=== PATIENT | female | born 1990 | race American Indian/Alaskan Native ===

== ENCOUNTER 2017-01-25 10:38 | Emergency (ER) | payer MEDICAID, OTHER ==
[2017-01-25 11:19] VITALS: BP 138/93
[2017-01-25] MEDS ORDERED: FLEXERIL PO ONE (11:55)
[2017-01-25] MEDS ORDERED: MOTRIN PO ONE (11:56)
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
== END 2017-01-25 13:40 | disposition home or self-care (01) ==
LOC: ED 10:38
DX: R51 Headache (principal); E66.9 Obesity, unspecified; V49.9XXA Car occupant (driver) (passenger) injured in unspecified traffic accident, initial encounter; Y93.89 Activity, other specified; Y99.9 Unspecified external cause status; Y92.410 Unspecified street and highway as the place of occurrence of the external cause
CPT/HCPCS: 70450

== ENCOUNTER 2017-02-01 08:51 | Emergency (ER) | payer MEDICAID, OTHER ==
[2017-02-01 09:09] VITALS: BP 147/98
[2017-02-01 09:54] LABS: Hematocrit 38.1 % (30.3-42.9); Mean Corpuscular HGB Conc 32 % (30-34); Mean Corpuscular Volume 81 fl (79-97); Platelet Count 332 K/mm3 (140-440); Red Blood Count 4.73 M/mm3 (3.65-5.03); Red Cell Distribution Width 15.2 % (13.2-15.2); White Blood Count 5.9 K/mm3 (4.5-11.0)
[2017-02-01 09:56] LABS: Mean Corpuscular Hemoglobin 25 pg (28-32)
[2017-02-01 10:08] LABS: Bacteria,Urine 1+ /HPF (Negative); Bilirubin,Urine NEG (Negative); Blood,Urine LG (Negative); Ketones,Urine NEG (Negative); Leukocyte Esterase,Urine TR (Negative); Mucus,Urine 1+ /HPF; Nitrite,Urine NEG (Negative); Urobilinogen,Urine < 2.0 mg/dL (<2.0)
[2017-02-01 10:36] LABS: Basophils % (Manual) 0 % (0.0-1.8); Blastocytes % (Manual) 0 %
[2017-02-01 10:37] LABS: Anisocytosis 1+; Hypochromasia 1+; Poikilocytosis 1+; Target Cells Few
[2017-02-01 10:38] LABS: Giant Platelets Rare; Ovalocytes Few; Platelet Estimate Consistent w Auto
[2017-02-01 10:39] LABS: Diff Status Complete
--- NOTE | 2017-02-01 12:56 | Emergency Department Report ---
ED Female HPI - General Chief complaint: Urogenital-Female Stated complaint: ABD CYCLE X 10 DAYS Source: patient Mode of arrival: Ambulatory Limitations: No Limitations - History of Present Illness Initial comments: 26 year old female presents to ED with vaginal bleeding. patient states her menstrual cycle is on right now and has lasted 10 days instead of her usual 5 days and she would like to be evaluated. patient denies vaginal discharge and denies being sexually active. patient denies dysuria. patient denies abdominal/ pelvic pain, N/V. patient is stable, neurologically intact and in no acute distress. patient has neg preg test during ED visit today. MD Complaint: vaginal bleeding -: Gradual Radiation: non-radiating Severity: mild Consistency: constant Worsens with: menstrual period Are you Now?: No Associated Symptoms: vaginal bleeding. denies: vaginal discharge, abdominal pain, nausea/vomiting, fever/chills, dysuria, syncope, weakness - Related Data Sexually active: No Previous Rx's Medication Instructions Recorded Last Taken Type Cyclobenzaprine [Flexeril] 10 mg PO TID PRN #20 tablet 01/25/17 Unknown Rx Naproxen [Naprosyn] 500 mg PO BID #30 tablet 01/25/17 Unknown Rx Allergies Allergy/AdvReac Type Severity Reaction Status Date / Time No Known Allergies Allergy Verified 01/25/17 11:14 ED Review of Systems ROS: Stated complaint: ABD CYCLE X 10 DAYS Other details as noted in HPI Constitutional: denies: chills, fever Eyes: denies: eye pain, eye discharge, vision change ENT: denies: ear pain, throat pain Respiratory: denies: cough, shortness of breath, wheezing Cardiovascular: denies: chest pain, palpitations Endocrine: no symptoms reported Gastrointestinal: denies: abdominal pain, nausea, diarrhea Genitourinary: abnormal menses. denies: urgency, dysuria, discharge Musculoskeletal: denies: back pain, joint swelling, arthralgia Skin: denies: rash, lesions Neurological: denies: headache, weakness, paresthesias Psychiatric: denies: anxiety, depression Hematological/Lymphatic: denies: easy bruising ED Past Medical Hx - Past Medical History Previous Medical History?: No Hx Hypertension: No Hx Congestive Heart Failure: No Hx Diabetes: No Hx Deep Vein Thrombosis: No Hx Renal Disease: No Hx Sickle Cell Disease: No Hx Seizures: No Hx Asthma: No Hx COPD: No Hx HIV: No Additional medical history: OBESITY - Surgical History Past Surgical History?: No - Social History Smoking Status: Never Smoker Substance Use Type: None - Medications Home Medications: Home Medications Medication Instructions Recorded Confirmed Last Taken Type Cyclobenzaprine [Flexeril] 10 mg PO TID PRN #20 tablet 01/25/17 Unknown Rx Naproxen [Naprosyn] 500 mg PO BID #30 tablet 01/25/17 Unknown Rx ED Physical Exam - General Limitations: No Limitations General appearance: alert, in no apparent distress - Head Head exam: Present: atraumatic, normocephalic - Eye Eye exam: Present: normal appearance - ENT ENT exam: Present: mucous membranes moist - Neck Neck exam: Present: normal inspection - Respiratory Respiratory exam: Present: normal lung sounds bilaterally. Absent: respiratory distress, wheezes - Cardiovascular Cardiovascular Exam: Present: regular rate, normal rhythm. Absent: systolic murmur, diastolic murmur, rubs, gallop - GI/Abdominal GI/Abdominal exam: Present: soft, normal bowel sounds. Absent: distended, tenderness, guarding - External exam: Present: normal external exam Speculum exam: Present: vaginal bleeding. Absent: vaginal discharge, foreign body - Extremities Exam Extremities exam: Present: normal inspection, full ROM - Back Exam Back exam: Present: normal inspection, full ROM - Neurological Exam Neurological exam: Present: alert, oriented X3, normal gait - Psychiatric Psychiatric exam: Present: normal affect, normal mood - Skin Skin exam: Present: warm, dry, intact, normal color. Absent: rash ED Course Vital Signs 02/01/17 09:05 Temperature 98.9 F Pulse Rate 97 H Respiratory 16 Rate Blood Pressure 147/98 O2 Sat by Pulse 100 Oximetry ED Medical Decision Making - Lab Data Result diagrams: 02/01/17 09:16 Labs 02/01/17 02/01/17 02/01/17 09:16 09:16 09:16 WBC 5.9 RBC 4.73 Hgb 12.0 Hct 38.1 MCV 81 MCH 25 L MCHC 32 RDW 15.2 Plt Count 332 Add Manual Diff Complete Total Counted 100 Seg Neutrophils % Poultry Offal Icer Seg Neuts % (Manual) 28.0 L Band Neutrophils % 0 Lymphocytes % (Manual) 65.0 H Reactive Lymphs % (Man) 0 Monocytes % (Manual) 5.0 Eosinophils % (Manual) 2.0 Basophils % (Manual) 0 Metamyelocytes % 0 Myelocytes % 0 Promyelocytes % 0 Blast Cells % 0 Nucleated RBC % Not Reportable Seg Neutrophils # Man 1.7 L Band Neutrophils # 0.0 Lymphocytes # (Manual) 3.8 Abs React Lymphs (Man) 0.0 Monocytes # (Manual) 0.3 Eosinophils # (Manual) 0.1 Basophils # (Manual) 0.0 Metamyelocytes # 0.0 Myelocytes # 0.0 Promyelocytes # 0.0 Blast Cells # 0.0 WBC Morphology Not Reportable Hypersegmented Neuts Not Reportable Hyposegmented Neuts Not Reportable Hypogranular Neuts Not Reportable Smudge Cells Not Reportable Toxic Granulation Not Reportable Toxic Vacuolation Not Reportable Dohle Bodies Not Reportable Pelger-Huet Anomaly Not Reportable Deana Rods Not Reportable Platelet Estimate Consistent w auto Clumped Platelets Not Reportable Plt Clumps, EDTA Not Reportable Large Platelets Not Reportable Giant Platelets Rare Platelet Satelliting Not Reportable Plt Morphology Comment Not Reportable RBC Morphology Not Reportable Dimorphic RBCs Not Reportable Polychromasia Not Reportable Hypochromasia 1+ Poikilocytosis 1+ Anisocytosis 1+ Microcytosis Not Reportable Macrocytosis Not Reportable Spherocytes Not Reportable Pappenheimer Bodies Not Reportable Sickle Cells Not Reportable Target Cells Few Tear Drop Cells Not Reportable Ovalocytes Few Helmet Cells Not Reportable Jarrell-[place] Bodies Not Reportable Bethelridge Rings Not Reportable Terrie Cells Not Reportable Bite Cells Not Reportable Crenated Cell Not Reportable Elliptocytes Not Reportable Acanthocytes (Spur) Not Reportable Rouleaux Not Reportable Hemoglobin C Crystals Not Reportable Schistocytes Not Reportable Malaria parasites Not Reportable Peyman Bodies Not Reportable Hem Pathologist Commnt No HCG, Quant < 2 Urine Color Urine Turbidity Urine pH Ur Specific Henriette Urine Protein Urine Glucose (UA) Urine Ketones Urine Blood Urine Nitrite Urine Bilirubin Urine Urobilinogen Ur Leukocyte Esterase Urine WBC (Auto) Urine RBC (Auto) U Epithel Cells (Auto) Urine Bacteria (Auto) Urine Mucus Blood Type B POSITIVE Antibody Screen Negative 02/01/17 09:24 WBC RBC Hgb Hct MCV MCH MCHC RDW Plt Count Add Manual Diff Total Counted Seg Neutrophils % Seg Neuts % (Manual) Band Neutrophils % Lymphocytes % (Manual) Reactive Lymphs % (Man) Monocytes % (Manual) Eosinophils % (Manual) Basophils % (Manual) Metamyelocytes % Myelocytes % Promyelocytes % Blast Cells % Nucleated RBC % Seg Neutrophils # Man Band Neutrophils # Lymphocytes # (Manual) Abs React Lymphs (Man) Monocytes # (Manual) Eosinophils # (Manual) Basophils # (Manual) Metamyelocytes # Myelocytes # Promyelocytes # Blast Cells # WBC Morphology Hypersegmented Neuts Hyposegmented Neuts Hypogranular Neuts Smudge Cells Toxic Granulation Toxic Vacuolation Dohle Bodies Pelger-Huet Anomaly Deana Rods Platelet Estimate Clumped Platelets Plt Clumps, EDTA Large Platelets Giant Platelets Platelet Satelliting Plt Morphology Comment RBC Morphology Dimorphic RBCs Polychromasia Hypochromasia Poikilocytosis Anisocytosis Microcytosis Macrocytosis Spherocytes Pappenheimer Bodies Sickle Cells Target Cells Tear Drop Cells Ovalocytes Helmet Cells Jarrell-[place] Bodies Bethelridge Rings Waterman Cells Bite Cells Crenated Cell Elliptocytes Acanthocytes (Spur) Rouleaux Hemoglobin C Crystals Schistocytes Malaria parasites Peyman Bodies Hem Pathologist Commnt HCG, Quant Urine Color Yellow Urine Turbidity Cloudy Urine pH 5.0 Ur Specific Henriette 1.027 Urine Protein 30 mg/dl Urine Glucose (UA) Neg Urine Ketones Neg Urine Blood Lg Urine Nitrite Neg Urine Bilirubin Neg Urine Urobilinogen < 2.0 Ur Leukocyte Esterase Tr Urine WBC (Auto) 2.0 Urine RBC (Auto) 5.0 U Epithel Cells (Auto) 26.0 H Urine Bacteria (Auto) 1+ Urine Mucus 1+ Blood Type Antibody Screen patient has normal wet prep exam - Medical Decision Making 26 year old female presents to ED with vaginal bleeding. patient states she is currently on menstrual cycle but cycle has lasted 10 days instead of her usual 5 days. patient has normal H&H, no UTI present in urine, normal wet prep results and neg preg test. patient has [employer] and understands and agrees to follow up within 2-3 days. patient is stable, neurologically intact and in no acute distress. Critical care attestation.: If time is entered above; I have spent that time in minutes in the direct care of this critically ill patient, excluding procedure time. ED Disposition Clinical Impression: Abnormal menstrual cycle Disposition: DC- TO HOME OR SELFCARE Is pt being admited?: No Does the pt Need Aspirin: No Condition: Stable Referrals: [facility] [Other] - 2-3 Days
== END 2017-02-01 13:05 | disposition home or self-care (01) ==
LOC: ED 08:51
DX: N92.6 Irregular menstruation, unspecified (principal); E66.9 Obesity, unspecified
CPT/HCPCS: 36415; 81001; 84702; 85007; 85025; 86850; 86900; 86901; 87210; 87591; 99284

== ENCOUNTER 2017-06-05 10:28 | Outpatient (CLI) | payer MEDICAID ==
--- NOTE | 2017-06-05 13:59 | Ultrasound Report ---
ULTRASOUND THYROID SCAN History: Nontoxic goiter unspecified. Findings: Grayscale ultrasound with color Doppler interrogation was performed. The thyroid gland is normal size, contour and echotexture. No evidence for mass, cyst or adenopathy. Impression: Normal sonographic appearance of the thyroid gland. No focal lesion.
== END 2017-06-05 10:29 | disposition home or self-care (01) ==
LOC: US 10:28
PROVIDERS: ATTEND Family Medicine
DX: E04.9 Nontoxic goiter, unspecified (principal)
CPT/HCPCS: 76536

== ENCOUNTER 2017-06-23 23:51 | Emergency (ER) | payer MEDICAID | END 2017-06-23 23:52 | disposition left against medical advice (07) | LOC: ED 23:51 | DX: R10.9 Unspecified abdominal pain (principal); Z53.21 Procedure and treatment not carried out due to patient leaving prior to being seen by health care provider ==

== ENCOUNTER 2017-09-16 19:16 | Emergency (ER) | payer MEDICAID ==
[2017-09-16 20:41] LABS: HCG Qualitative,Urine Negative (Negative)
[2017-09-16] MEDS ORDERED: MOTRIN ONE (23:28)
[2017-09-17] MEDS ORDERED: FLEXERIL PO ONE (00:24)
[2017-09-17] MEDS ORDERED: MOTRIN PO ONE (00:24)
--- NOTE | 2017-09-17 01:41 | Emergency Department Report ---
ED General Adult HPI - General Chief complaint: Extremity Injury, Upper Stated complaint: SOB,BACK PAIN Time Seen by Provider: 09/17/17 00:22 Source: patient Mode of arrival: Ambulatory Limitations: No Limitations - History of Present Illness Initial comments: 27-year-old female past medical history obesity, on control presents with complaint of left back muscle pain. States it has been ongoing for 2 days. States that she has been straining herself by lifting heavy boxes at work. Patient also states that she experiences pain in this area of her upper left back below shoulder when she takes a deep breath. Denies any anterior chest pain palpitations diaphoresis nausea vomiting or abdominal pain. Denies any hemoptysis. Patient denies any direct trauma to area. Patient denies any personal history of PE or DVT. Denies any shortness of breath palpitations. Patient does state she is currently on Depo-Provera for control Onset/Timin -: days(s) Location: back (left upper back) Severity scale (0 -10): 6 Quality: aching Consistency: intermittent Worsens with: movement - Related Data Previous Rx's Medication Instructions Recorded Last Taken Type Cyclobenzaprine [Flexeril] 10 mg PO TID PRN #20 tablet 01/25/17 Unknown Rx Naproxen [Naprosyn] 500 mg PO BID #30 tablet 01/25/17 Unknown Rx Cyclobenzaprine [Flexeril] 10 mg PO TID PRN #12 tablet 09/17/17 Unknown Rx Ibuprofen [Motrin] 800 mg PO Q8HR PRN #20 tablet 09/17/17 Unknown Rx Allergies Allergy/AdvReac Type Severity Reaction Status Date / Time No Known Allergies Allergy Verified 01/25/17 11:14 ED Review of Systems ROS: Stated complaint: SOB,BACK PAIN Other details as noted in HPI Constitutional: denies: chills, fever Eyes: denies: eye pain, eye discharge, vision change ENT: denies: ear pain, throat pain Respiratory: denies: cough, shortness of breath, wheezing Cardiovascular: denies: chest pain, palpitations Endocrine: no symptoms reported Gastrointestinal: denies: abdominal pain, nausea, diarrhea Genitourinary: denies: urgency, dysuria, discharge Musculoskeletal: as per HPI. denies: back pain, joint swelling, arthralgia Skin: denies: rash, lesions Neurological: denies: headache, weakness, paresthesias Psychiatric: denies: anxiety, depression Hematological/Lymphatic: denies: easy bleeding, easy bruising ED Past Medical Hx - Past Medical History Hx Hypertension: No Hx Congestive Heart Failure: No Hx Diabetes: No Hx Deep Vein Thrombosis: No Hx Renal Disease: No Hx Sickle Cell Disease: No Hx Seizures: No Hx Asthma: No Hx COPD: No Hx HIV: No Additional medical history: OBESITY - Social History Smoking Status: Never Smoker Substance Use Type: None - Medications Home Medications: Home Medications Medication Instructions Recorded Confirmed Last Taken Type Cyclobenzaprine [Flexeril] 10 mg PO TID PRN #20 tablet 01/25/17 Unknown Rx Naproxen [Naprosyn] 500 mg PO BID #30 tablet 01/25/17 Unknown Rx Cyclobenzaprine [Flexeril] 10 mg PO TID PRN #12 tablet 09/17/17 Unknown Rx Ibuprofen [Motrin] 800 mg PO Q8HR PRN #20 tablet 09/17/17 Unknown Rx ED Physical Exam - General Limitations: No Limitations General appearance: alert, in no apparent distress - Head Head exam: Present: atraumatic, normocephalic - Eye Eye exam: Present: normal appearance, PERRL, EOMI - ENT ENT exam: Present: mucous membranes moist - Neck Neck exam: Present: normal inspection - Respiratory Respiratory exam: Present: normal lung sounds bilaterally. Absent: respiratory distress - Cardiovascular Cardiovascular Exam: Present: regular rate, normal rhythm. Absent: systolic murmur, diastolic murmur, rubs, gallop - GI/Abdominal GI/Abdominal exam: Present: soft, normal bowel sounds - Extremities Exam Extremities exam: Present: normal inspection - Back Exam Back exam: Present: normal inspection, full ROM, tenderness (some tenderness overlying the left latissimus muscle. No erythema no fluctuance.) - Neurological Exam Neurological exam: Present: alert, oriented X3, CN II-XII intact, normal gait - Psychiatric Psychiatric exam: Present: normal affect, normal mood - Skin Skin exam: Present: warm, dry, intact, normal color. Absent: rash ED Course Vital Signs 09/16/17 09/16/17 19:26 19:39 Temperature 98.6 F 98.6 F Pulse Rate 81 84 Respiratory 18 18 Rate Blood Pressure 147/85 147/85 O2 Sat by Pulse 99 100 Oximetry ED Medical Decision Making - Medical Decision Making A/P: Musculoskeletal upper back pain 1-d-dimer negative. I checked this as patient stated the pain was worse with a deep breath and patient is on control 2-Aleve and Flexeril when necessary 3-follow-up with primary care 4-vital signs stable for discharge Critical care attestation.: If time is entered above; I have spent that time in minutes in the direct care of this critically ill patient, excluding procedure time. ED Disposition Clinical Impression: Back pain Qualifiers: Back pain location: back pain in other location Chronicity: acute Qualified Code(s): M54.9 - Dorsalgia, unspecified Strain of latissimus dorsi muscle Qualifiers: Encounter type: initial encounter Qualified Code(s): S29.012A - Strain of muscle and tendon of back wall of thorax, initial encounter Disposition: TO HOME OR SELFCARE Is pt being admited?: No Does the pt Need Aspirin: No Condition: Stable Instructions: Musculoskeletal Pain (ED), Back Pain (ED) Prescriptions: Cyclobenzaprine [Flexeril] 10 mg PO TID PRN #12 tablet PRN Reason: Muscle Spasm Ibuprofen [Motrin] 800 mg PO Q8HR PRN #20 tablet PRN Reason: Pain Referrals: [facility] [Outside] - 3-5 Days [facility] [Outside] - 3-5 Days Forms: Work/School Release Form(ED) Time of Disposition: 02:41
[2017-09-17] MEDS ORDERED: TYLENOL PO ONE (02:03)
[2017-09-17 02:54] VITALS: BP 128/77
== END 2017-09-17 02:48 | disposition home or self-care (01) ==
LOC: ED 19:16
DX: S29.012A Strain of muscle and tendon of back wall of thorax, initial encounter (principal); X50.0XXA Overexertion from strenuous movement or load, initial encounter; Y93.89 Activity, other specified; Y92.89 Other specified places as the place of occurrence of the external cause; Y99.8 Other external cause status
CPT/HCPCS: 36415; 81025; 85379; 99283

== ENCOUNTER 2018-11-04 10:24 | Emergency (ER) | payer MEDICAID ==
[2018-11-04 10:40] VITALS: BP 123/85
[2018-11-04] MEDS ORDERED: FLEXERIL PO ONE (11:51)
[2018-11-04] MEDS ORDERED: DELTASONE PO ONE (11:51)
--- NOTE | 2018-11-04 11:56 | Emergency Department Report ---
ED Back Pain/Injury HPI - General Chief Complaint: Back Pain/Injury Stated Complaint: BACK SPASM Time Seen by Provider: 11/04/18 11:51 Source: patient Limitations: No Limitations - History of Present Illness Initial Comments: 28 yo obese female with a/c low back pain. no fall or trauma. has been treated here in past. has had xray in past. no fever. no dysuria. no vag dc. does not have periods due to control . did not see her pcp. nothing has made better. movement makes worse. ambulatory to ER. Complaint: back pain -: Gradual, days(s) Similar Symptoms Previously: Yes Place: home Radiation: none Severity: mild Quality: aching Consistency: constant Improves With: none Worsens With: none Context: while lifting, turning/twisting, bending Associated Symptoms: denies other symptoms - Related Data Previous Rx's Medication Instructions Recorded Last Taken Type Cyclobenzaprine [Flexeril] 10 mg PO TID PRN #10 tablet 11/04/18 Unknown Rx Ibuprofen [Motrin] 800 mg PO Q8HR PRN #20 tablet 11/04/18 Unknown Rx predniSONE [Deltasone] 20 mg PO DAILY #5 tablet 11/04/18 Unknown Rx Allergies Allergy/AdvReac Type Severity Reaction Status Date / Time No Known Allergies Allergy Verified 11/04/18 10:25 ED Review of Systems ROS: Stated complaint: BACK SPASM Other details as noted in HPI Comment: All other systems reviewed and negative Cardiovascular: denies: palpitations Endocrine: denies: excessive sweating Gastrointestinal: denies: abdominal pain, diarrhea, constipation Genitourinary: denies: urgency, dysuria, hematuria Musculoskeletal: as per HPI, back pain. denies: arthralgia Skin: denies: lesions Neurological: denies: headache Psychiatric: denies: anxiety Hematological/Lymphatic: denies: easy bleeding ED Past Medical Hx - Past Medical History OBESITY Surgical history: no surgical history Family history: no significant family history ED Back Pain Physical Exam - Exam General: Vital signs noted. No distress. Alert and acting appropriately. Back/Abdomen: No Abdominal Tenderness, No Perithoracic Tenderness, No Perilumbar Tenderness, No Sacroiliac Tenderness, No Flank Tenderness, No Straight Leg Raise Pain Neuro: Yes Normal Sensation, Yes Normal DTR's, Yes Normal Gait, No Motor Weakness ED Course Vital Signs 11/04/18 10:39 Temperature 97.8 F Pulse Rate 91 H Respiratory 20 Rate Blood Pressure 123/85 O2 Sat by Pulse 98 Oximetry ED Medical Decision Making - Medical Decision Making previous xray neg no fall or trauma no cva tenderness no fever l lumbar spasm noted no spine tenderness pain does not wake her at night does not have periods due to her control no dysria no vag dc obese with large breasts lifting child did not follow up after last visit- discussed weight loss and follow up medicated with flexeril and prednisone dc home with dc plan of care. Vital Signs 11/04/18 10:39 Temperature 97.8 F Pulse Rate 91 H Respiratory 20 Rate Blood Pressure 123/85 O2 Sat by Pulse 98 Oximetry Critical care attestation.: If time is entered above; I have spent that time in minutes in the direct care of this critically ill patient, excluding procedure time. ED Disposition Clinical Impression: Spasm of lumbar paraspinous muscle Disposition: DC-01 TO HOME OR SELFCARE Is pt being admited?: No Does the pt Need Aspirin: No Condition: Stable Instructions: Low Back Strain (ED) Referrals: KEN ALVARADO [Other] - 3-5 Days ROBEL ETIENNE MD [Staff Physician] - 3-5 Days Time of Disposition: 11:54
== END 2018-11-04 12:13 | disposition home or self-care (01) ==
LOC: ED 10:24
DX: M62.830 Muscle spasm of back (principal)
CPT/HCPCS: 99282; J7512

== ENCOUNTER 2019-08-09 09:38 | Emergency (ER) | payer MEDICAID ==
[2019-08-09 09:46] VITALS: BP 154/95
--- NOTE | 2019-08-09 11:20 | Emergency Department Report ---
ED Female HPI - General Chief complaint: Urogenital-Female Stated complaint: VAGINAL ISSUES Time Seen by Provider: 08/09/19 10:47 Source: patient Mode of arrival: Ambulatory Limitations: No Limitations - History of Present Illness Initial comments: This is a 29-year-old female nontoxic, well nourished in appearance, no acute signs of distress presents to the ED with c/o of foreign body in vagina since this morning. Patient stated that she placed a "vaginal detox" treatment and string accidentally went up and is unable to find it. Patient denies any vaginal discharge, pelvic pain, abdominal pain, nausea, vomiting, headache, stiff neck, numbness or tingling. Patient denies any allergies or significant past medical history MD Complaint: other (foreign body) -: This morning Severity scale (0 -10): 0 Improves with: none Worsens with: none Associated Symptoms: denies other symptoms. denies: vaginal discharge, vaginal bleeding, abdominal pain, nausea/vomiting, fever/chills, headaches, loss of appetite, dysuria, hematuria, rash, seizure, shortness of breath, syncope, weakness - Related Data Previous Rx's Medication Instructions Recorded Last Taken Type Cyclobenzaprine [Flexeril] 10 mg PO TID PRN #10 tablet 11/04/18 Unknown Rx Ibuprofen [Motrin] 800 mg PO Q8HR PRN #20 tablet 11/04/18 Unknown Rx predniSONE [Deltasone] 20 mg PO DAILY #5 tablet 11/04/18 Unknown Rx Allergies Allergy/AdvReac Type Severity Reaction Status Date / Time No Known Allergies Allergy Verified 11/04/18 10:25 ED Review of Systems ROS: Stated complaint: VAGINAL ISSUES Other details as noted in HPI Constitutional: denies: chills, fever Eyes: denies: eye pain, eye discharge, vision change ENT: denies: ear pain, throat pain Respiratory: denies: cough, shortness of breath, wheezing Cardiovascular: denies: chest pain, palpitations Endocrine: no symptoms reported Gastrointestinal: denies: abdominal pain, nausea, diarrhea Genitourinary: denies: urgency, dysuria, discharge Musculoskeletal: denies: back pain, joint swelling, arthralgia Skin: denies: rash, lesions Neurological: denies: headache, weakness, paresthesias Psychiatric: denies: anxiety, depression Hematological/Lymphatic: denies: easy bleeding, easy bruising ED Past Medical Hx - Past Medical History Previous Medical History?: No Hx Hypertension: No Hx Congestive Heart Failure: No Hx Diabetes: No Hx Deep Vein Thrombosis: No Hx Renal Disease: No Hx Sickle Cell Disease: No Hx Seizures: No Hx Asthma: No Hx COPD: No Hx HIV: No Additional medical history: OBESITY - Surgical History Past Surgical History?: No - Social History Smoking Status: Never Smoker Substance Use Type: None - Medications Home Medications: Home Medications Medication Instructions Recorded Confirmed Last Taken Type Cyclobenzaprine [Flexeril] 10 mg PO TID PRN #10 tablet 11/04/18 Unknown Rx Ibuprofen [Motrin] 800 mg PO Q8HR PRN #20 tablet 11/04/18 Unknown Rx predniSONE [Deltasone] 20 mg PO DAILY #5 tablet 11/04/18 Unknown Rx ED Physical Exam - General Limitations: No Limitations General appearance: alert, in no apparent distress - Head Head exam: Present: atraumatic, normocephalic - Neck Neck exam: Present: normal inspection, full ROM - GI/Abdominal GI/Abdominal exam: Present: soft, normal bowel sounds. 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 Absent: cervical motion tendernes, adnexal tenderness, adnexal mass, uterine enlargement, uterine tenderness - Extremities Exam Extremities exam: Present: normal inspection, full ROM - Back Exam Back exam: Present: normal inspection, full ROM. Absent: tenderness, CVA tenderness (R), CVA tenderness (L), muscle spasm, paraspinal tenderness, vertebral tenderness, rash noted - Neurological Exam Neurological exam: Present: alert, oriented X3, normal gait - Psychiatric Psychiatric exam: Present: normal affect, normal mood - Skin Skin exam: Present: warm, dry, intact, normal color. Absent: rash ED Course Vital Signs 08/09/19 09:45 Temperature 98.2 F Pulse Rate 91 H Respiratory 16 Rate Blood Pressure 154/95 [Right] O2 Sat by Pulse 98 Oximetry - Reevaluation(s) Reevaluation #1: 08/09/19 11:21 Patient is speaking in full sentences with no signs of distress noted. ED Medical Decision Making - Medical Decision Making 29-year-old female that presents with foreign body in the vagina. Patient is stable and was examined by me. Foreign body has been removed. There is no foul odor or vaginal discharge. This occurred this morning so I am not concerned about toxic shock. Patient was instructed to Follow-up with a primary care doctor in 3-5 days or if symptoms worsen and continue return to emergency room as soon as possible. At time of discharge, the patient does not seem toxic or ill in appearance. No acute signs of distress noted. Patient agrees to discharge treatment plan of care. No further questions noted by the patient. Critical care attestation.: If time is entered above; I have spent that time in minutes in the direct care of this critically ill patient, excluding procedure time. ED Disposition Clinical Impression: Vaginal foreign body Qualifiers: Encounter type: initial encounter Qualified Code(s): T19.2XXA - Foreign body in vulva and vagina, initial encounter Disposition: DC-01 TO HOME OR SELFCARE Is pt being admited?: No Does the pt Need Aspirin: No Condition: Stable Additional Instructions: Follow-up with a primary care doctor in 3-5 days or if symptoms worsen and continue return to emergency room as soon as possible. Referrals: KRYSTYNA GASTON MD [Primary Care Provider] - 3-5 Days ARIS TORRES MD [Staff Physician] - 3-5 Days [facility] [Outside] - 3-5 Days Forms: Work/School Release Form(ED)
== END 2019-08-09 11:44 | disposition home or self-care (01) ==
LOC: ED 09:38
DX: T19.2XXA Foreign body in vulva and vagina, initial encounter (principal); X58.XXXA Exposure to other specified factors, initial encounter; Z79.899 Other long term (current) drug therapy

== ENCOUNTER 2022-02-05 06:37 | Emergency (ER) | payer MEDICAID ==
[2022-02-05 06:50] VITALS: BP 124/80
--- NOTE | 2022-02-07 18:01 | Electrocardiograph Report ---
[facility] Test Date: 2022-02-05 Test Time: 06:52:53 Pat Name: ARON SPRING Department: Room: Gender: F [employer]: TREY : 1990 Requested By: MARYELLEN ORTIZ Order Number: [id number] Reading MD: Peri Kuo Measurements Intervals [place] Rate: 60 P: 28 WA: 195 QRS: 16 QRSD: 71 T: 4 QT: 381 QTc: 380 Interpretive Statements Sinus arrhythmia Low voltage, precordial leads No previous ECG available for comparison Electronically Signed On 02-07-2022 18:01:26 EDT by Peri Kuo
== END 2022-02-05 15:00 | disposition left against medical advice (07) ==
LOC: ED 06:37
DX: R05.9 Cough, unspecified (principal); R07.89 Other chest pain; Z53.21 Procedure and treatment not carried out due to patient leaving prior to being seen by health care provider
CPT/HCPCS: 93005